=== PATIENT | female | born 1945 | race Two or more races ===

== ENCOUNTER 2020-12-15 15:43 | Inpatient (IN) | payer OTHER ==
[~2020-12-15] VITALS: Ht 167.6 cm; Wt 83.2 kg
[2020-12-15 16:28] LABS: Basophils # (auto) 0 10 ^3/uL (0-0.2); Eosinophils # (auto) 0 10 ^3/uL (0-0.8); Hematocrit 42.8 % (36.0-46.0); Hemoglobin 14.9 g/dL (12.2-16.2); Lymphocytes # (auto) 0.8 10 ^3/uL (0.4-5.4); Lymphocytes % (auto) 13.8 % (10.0-50.0); Mean Corpuscular Hemoglobin 33.3 pg (28.0-32.0); Mean Corpuscular Hgb Conc. 34.9 g/dL (32.0-36.0); Mean Corpuscular Volume 95.4 fL (80.0-100.0); Monocytes # (auto) 0.3 10 ^3/uL (0-1.3); Monocytes % (auto) 5.7 % (0.0-12.0); Neutrophils # (auto) 4.8 10 ^3/uL (1.6-8.6); Neutrophils % (auto) 80.5 % (37.0-80.0); Red Blood Cells 4.49 10^6/uL (4.0-5.20); Red Cell Distribution Width 13.5 % (11.8-14.3)
[2020-12-15 16:48] LABS: Alanine Aminotransferase 25 U/L (13-56); Albumin 2.6 g/dL (3.4-5.0); Anion Gap 8 (5-15); Aspartate Aminotransferase 37 U/L (15-37); BUN/Creatinine Ratio 29.2; Blood Urea Nitrogen 21 mg/dL (7-18); Calcium 8.1 mg/dL (8.5-10.1); Carbon Dioxide 24 mmol/L (21-32); Chloride 102 mmol/L (98-107); GFR African American 101 mL/min; GFR Non-African American 84 mL/min; Glucose 93 mg/dL (74-106); Potassium 4.1 mmol/L (3.5-5.1); Sodium 134 mmol/L (136-145)
[2020-12-15 16:52] LABS: Alkaline Phosphatase 52 U/L (45-117); Bilirubin, Total 0.4 mg/dL (0.2-1.0); Total Protein 6.5 g/dL (6.4-8.2)
[2020-12-15 17:50] LABS: Urine Bacteria NONE SEEN /hpf (None Seen); Urine Blood Negative /uL (Negative); Urine Hyaline Cast FEW /lpf (0 - 2); Urine Mucus FEW (None Seen); Urine Specific Gravity 1.024 (1.001-1.035); Urine WBC 6 /hpf (0 - 5)
[2020-12-15] MEDS ORDERED: AZITHROMYCIN 500MG/ 250ML 250 ML IV ONE (20:00)
[2020-12-15] MEDS ORDERED: cefTRIAXone 1GM/50ML D5W 50 ML IV ONE (20:00)
[2020-12-15] MEDS ORDERED: HYDROcodone-ACET 5/325MG TAB PO ONE (21:00)
[2020-12-16] MEDS ORDERED: DOCUSATE SOD 100 MG CAP PO PRN
[2020-12-16] MEDS ORDERED: NITROGLYCERIN 0.4 MG SL TAB SL PRN
[2020-12-16] MEDS ORDERED: ACETAMINOPHEN 325 MG TAB PO PRN
[2020-12-16] MEDS ORDERED: ONDANSETRON HCL 4 MG/2 ML VIAL IV PRN
[2020-12-16 08:06] LABS: Basophils # (auto) 0 10 ^3/uL (0-0.2); Basophils % (auto) 0.4 % (0.0-2.0); Eosinophils # (auto) 0 10 ^3/uL (0-0.8); Eosinophils % (auto) 0.1 % (0.0-7.0); Hematocrit 42.6 % (36.0-46.0); Hemoglobin 14.7 g/dL (12.2-16.2); Lymphocytes # (auto) 0.7 10 ^3/uL (0.4-5.4); Lymphocytes % (auto) 14.8 % (10.0-50.0); Mean Corpuscular Hemoglobin 33.1 pg (28.0-32.0); Mean Corpuscular Hgb Conc. 34.6 g/dL (32.0-36.0); Mean Corpuscular Volume 95.7 fL (80.0-100.0); Monocytes # (auto) 0.2 10 ^3/uL (0-1.3); Monocytes % (auto) 5.3 % (0.0-12.0); Neutrophils # (auto) 3.7 10 ^3/uL (1.6-8.6); Neutrophils % (auto) 79.4 % (37.0-80.0); Red Blood Cells 4.46 10^6/uL (4.0-5.20); Red Cell Distribution Width 13.8 % (11.8-14.3); White Blood Cell 4.7 10^3/uL (4.4-10.8)
[2020-12-16 08:22] LABS: Albumin 2.3 g/dL (3.4-5.0); Calcium 8.2 mg/dL (8.5-10.1); Potassium 3.8 mmol/L (3.5-5.1)
[2020-12-16 08:26] LABS: BUN/Creatinine Ratio 24.4; Bilirubin, Total 0.5 mg/dL (0.2-1.0); Total Protein 6.4 g/dL (6.4-8.2)
[2020-12-16] MEDS ORDERED: ENOXAPARIN SOD 40 MG/0.4 ML SYRINGE SC SCH (10:00)
[2020-12-16] MEDS ORDERED: FAMOTIDINE (10MG/ML) 2ML VL IV SCH (10:00)
[2020-12-16] MEDS: ASCORBIC ACID 500 MG TAB PO SCH ×2 (10:37→23:00)
[2020-12-16] MEDS: MULTIPLE VITAMIN TAB PO SCH (10:37)
[2020-12-16] MEDS: AZITHROMYCIN 500MG/ 250ML 250 ML IV SCH ×2 (10:37→15:42)
[2020-12-16] MEDS: ZINC SULFATE 220mg CAP or TAB PO SCH (10:37)
[2020-12-16] MEDS ORDERED: DexAMETHasone 4 MG TAB PO ONE (11:30)
[2020-12-16] MEDS ORDERED: CHOLECALCIFEROL (VITD3) 2,000 UNIT CAP/TAB PO ONE (11:30)
[2020-12-16] MEDS: SODIUM CHLORIDE 0.9% 1,000 ML IV SCH ×2 (12:00→15:43)
[2020-12-16] MEDS: MORPHINE SULFATE INJECTION 2 MG/ML SYRG IV PRN (15:43)
[2020-12-16] MEDS: HYDROcodone-ACET 5/325MG TAB PO PRN (23:15)
[2020-12-17] MEDS ORDERED: ENOXAPARIN SOD 40 MG/0.4 ML SYRINGE SC SCH (02:45)
[2020-12-17] MEDS ORDERED: ALBUMIN 25% 50 ML IV ONE (03:00)
[2020-12-17] MEDS: FAMOTIDINE (10MG/ML) 2ML VL IV SCH ×3 (03:21→21:08)
[2020-12-17 05:11] LABS: Basophils # (auto) 0 10 ^3/uL (0-0.2); Basophils % (auto) 0.1 % (0.0-2.0); Eosinophils # (auto) 0 10 ^3/uL (0-0.8); Hematocrit 43.3 % (36.0-46.0); Hemoglobin 15.2 g/dL (12.2-16.2); Lymphocytes # (auto) 0.4 10 ^3/uL (0.4-5.4); Lymphocytes % (auto) 12.5 % (10.0-50.0); Mean Corpuscular Hemoglobin 33.4 pg (28.0-32.0); Mean Corpuscular Hgb Conc. 35.2 g/dL (32.0-36.0); Monocytes # (auto) 0.1 10 ^3/uL (0-1.3); Monocytes % (auto) 3.9 % (0.0-12.0); Neutrophils # (auto) 2.7 10 ^3/uL (1.6-8.6); Neutrophils % (auto) 83.5 % (37.0-80.0); Nucleated Red Blood Cells % 0.3 %; Red Blood Cells 4.56 10^6/uL (4.0-5.20); Red Cell Distribution Width 13.9 % (11.8-14.3); White Blood Cell 3.3 10^3/uL (4.4-10.8)
[2020-12-17 05:26] LABS: Potassium 3.7 mmol/L (3.5-5.1)
[2020-12-17 05:34] LABS: BUN/Creatinine Ratio 29.5; Calcium 8.4 mg/dL (8.5-10.1); Magnesium 2.4 mg/dL (1.6-2.6)
[2020-12-17] MEDS: HYDROcodone-ACET 5/325MG TAB PO PRN ×2 (06:38→20:44)
[2020-12-17] MEDS: ZINC SULFATE 220mg CAP or TAB PO SCH (10:57)
[2020-12-17] MEDS: cefTRIAXone 1GM/50ML D5W 50 ML IV SCH (10:57)
[2020-12-17] MEDS: DexAMETHasone 4 MG TAB PO SCH (10:58)
[2020-12-17] MEDS: ASCORBIC ACID 500 MG TAB PO SCH ×2 (10:58→21:08)
[2020-12-17] MEDS: CHOLECALCIFEROL (VITD3) 2,000 UNIT CAP/TAB PO SCH (10:58)
[2020-12-17] MEDS: MULTIPLE VITAMIN TAB PO SCH (10:59)
[2020-12-17] MEDS ORDERED: REMDESIVIR PER PHARMACY 0 ML IV SCH (12:30)
[2020-12-17] MEDS ORDERED: REMDESIVIR 200 MG in NS 210ml LOADING DOSE ADULT IV ONE (15:00)
[2020-12-17 17:00] VITALS: BP 126/58
[2020-12-17] MEDS ORDERED: DULO1CAP6 PO (18:57)
[2020-12-17] MEDS ORDERED: TIZA4CAP PO (18:57)
[2020-12-17] MEDS ORDERED: OXYB5SYP4 PO (18:57)
[2020-12-17] MEDS ORDERED: OXYC-650 PO (18:57)
[2020-12-17] MEDS ORDERED: CLOP75TA70 PO (18:57)
[2020-12-17] MEDS ORDERED: ASPI325T4 PO (18:57)
[2020-12-17] MEDS: SODIUM CHLORIDE 0.9% 1,000 ML IV SCH (21:08)
[2020-12-17] MEDS: ENOXAPARIN SOD 40 MG/0.4 ML SYRINGE SC SCH (21:09)
[2020-12-17 22:00] VITALS: BP 122/78
[2020-12-18] MEDS: HYDROcodone-ACET 5/325MG TAB PO PRN ×2 (03:46→08:50)
[2020-12-18 06:00] LABS: Basophils # (auto) 0 10 ^3/uL (0-0.2); Basophils % (auto) 0.1 % (0.0-2.0); Eosinophils # (auto) 0 10 ^3/uL (0-0.8); Hematocrit 44.9 % (36.0-46.0); Hemoglobin 15.5 g/dL (12.2-16.2); Lymphocytes # (auto) 0.6 10 ^3/uL (0.4-5.4); Lymphocytes % (auto) 11.2 % (10.0-50.0); Mean Corpuscular Hemoglobin 33.1 pg (28.0-32.0); Mean Corpuscular Hgb Conc. 34.6 g/dL (32.0-36.0); Mean Corpuscular Volume 95.8 fL (80.0-100.0); Monocytes # (auto) 0.4 10 ^3/uL (0-1.3); Monocytes % (auto) 7.1 % (0.0-12.0); Neutrophils # (auto) 4.4 10 ^3/uL (1.6-8.6); Neutrophils % (auto) 81.6 % (37.0-80.0); Nucleated Red Blood Cells % 0.2 %; Red Blood Cells 4.69 10^6/uL (4.0-5.20); Red Cell Distribution Width 13.9 % (11.8-14.3); White Blood Cell 5.3 10^3/uL (4.4-10.8)
[2020-12-18 06:27] LABS: Albumin 2.3 g/dL (3.4-5.0); BUN/Creatinine Ratio 35.4; Bilirubin, Total 0.3 mg/dL (0.2-1.0); Calcium 8.7 mg/dL (8.5-10.1); Magnesium 2.2 mg/dL (1.6-2.6); Total Protein 6.3 g/dL (6.4-8.2)
[2020-12-18 09:00] VITALS: BP 140/57
[2020-12-18] MEDS: cefTRIAXone 1GM/50ML D5W 50 ML IV SCH (09:00)
[2020-12-18] MEDS: SODIUM CHLORIDE 0.9% 1,000 ML IV SCH (09:00)
[2020-12-18] MEDS: FAMOTIDINE (10MG/ML) 2ML VL IV SCH ×2 (09:54→21:08)
[2020-12-18] MEDS: ZINC SULFATE 220mg CAP or TAB PO SCH (09:54)
[2020-12-18] MEDS: AZITHROMYCIN 500MG/ 250ML 250 ML IV SCH (09:54)
[2020-12-18] MEDS: DexAMETHasone 4 MG TAB PO SCH (09:55)
[2020-12-18] MEDS: ASCORBIC ACID 500 MG TAB PO SCH ×2 (09:55→21:09)
[2020-12-18] MEDS: ENOXAPARIN SOD 40 MG/0.4 ML SYRINGE SC SCH ×2 (09:55→21:09)
[2020-12-18] MEDS: MULTIPLE VITAMIN TAB PO SCH (09:55)
[2020-12-18] MEDS: CHOLECALCIFEROL (VITD3) 2,000 UNIT CAP/TAB PO SCH (09:55)
[2020-12-18] MEDS: OXYCODONE W/ ACETAMINOPHEN 5/325MG TABLET PO PRN ×3 (11:22→21:10)
[2020-12-18] MEDS: guaiFENesin-DM 100/10mg/5ml SYR PO PRN ×3 (11:23→21:23)
[2020-12-18 12:51] VITALS: BP 126/48
[2020-12-18] MEDS: REMDESIVIR 100mg 100 MG in SODIUM CHL 0.9% 230 ML IV SCH (15:00)
[2020-12-18 17:00] VITALS: BP 116/65
[2020-12-18 22:00] VITALS: BP 123/77
[2020-12-19 05:00] VITALS: BP 132/80
[2020-12-19] MEDS: OXYCODONE W/ ACETAMINOPHEN 5/325MG TABLET PO PRN ×4 (05:29→20:54)
[2020-12-19] MEDS: guaiFENesin-DM 100/10mg/5ml SYR PO PRN ×4 (05:30→20:53)
[2020-12-19] MEDS: SODIUM CHLORIDE 0.9% 1,000 ML IV SCH (05:30)
[2020-12-19 05:56] LABS: Basophils # (auto) 0 10 ^3/uL (0-0.2); Basophils % (auto) 0.3 % (0.0-2.0); Eosinophils # (auto) 0 10 ^3/uL (0-0.8); Hematocrit 42.4 % (36.0-46.0); Hemoglobin 14.4 g/dL (12.2-16.2); Lymphocytes # (auto) 0.4 10 ^3/uL (0.4-5.4); Lymphocytes % (auto) 10.5 % (10.0-50.0); Mean Corpuscular Hemoglobin 32.4 pg (28.0-32.0); Mean Corpuscular Hgb Conc. 33.9 g/dL (32.0-36.0); Mean Corpuscular Volume 95.6 fL (80.0-100.0); Monocytes # (auto) 0.3 10 ^3/uL (0-1.3); Monocytes % (auto) 7.3 % (0.0-12.0); Neutrophils # (auto) 3.2 10 ^3/uL (1.6-8.6); Neutrophils % (auto) 81.9 % (37.0-80.0); Nucleated Red Blood Cells % 0.1 %; Red Blood Cells 4.43 10^6/uL (4.0-5.20); White Blood Cell 3.8 10^3/uL (4.4-10.8)
[2020-12-19 06:16] LABS: Potassium 3.8 mmol/L (3.5-5.1)
[2020-12-19 06:25] LABS: Albumin 2.2 g/dL (3.4-5.0); BUN/Creatinine Ratio 42.4; Bilirubin, Total 0.3 mg/dL (0.2-1.0); Calcium 8.3 mg/dL (8.5-10.1); Magnesium 2.2 mg/dL (1.6-2.6); Total Protein 5.7 g/dL (6.4-8.2)
[2020-12-19 08:42] VITALS: BP 134/92
[2020-12-19] MEDS: MULTIPLE VITAMIN TAB PO SCH (09:18)
[2020-12-19] MEDS: cefTRIAXone 1GM/50ML D5W 50 ML IV SCH (09:18)
[2020-12-19] MEDS: FAMOTIDINE (10MG/ML) 2ML VL IV SCH ×2 (09:18→20:52)
[2020-12-19] MEDS: DexAMETHasone 4 MG TAB PO SCH (09:19)
[2020-12-19] MEDS: ZINC SULFATE 220mg CAP or TAB PO SCH (09:20)
[2020-12-19] MEDS: ASCORBIC ACID 500 MG TAB PO SCH ×2 (09:20→20:52)
[2020-12-19] MEDS: ENOXAPARIN SOD 40 MG/0.4 ML SYRINGE SC SCH ×2 (09:20→20:53)
[2020-12-19] MEDS: CHOLECALCIFEROL (VITD3) 2,000 UNIT CAP/TAB PO SCH (09:20)
[2020-12-19] MEDS: AZITHROMYCIN 500MG/ 250ML 250 ML IV SCH (10:20)
[2020-12-19 12:48] VITALS: BP 109/37
[2020-12-19] MEDS: REMDESIVIR 100mg 100 MG in SODIUM CHL 0.9% 230 ML IV SCH (15:57)
[2020-12-19 17:00] VITALS: BP 148/65
[2020-12-19 22:00] VITALS: BP 120/64
[2020-12-20] MEDS: SODIUM CHLORIDE 0.9% 1,000 ML IV SCH ×2 (01:20→15:30)
[2020-12-20 05:00] VITALS: BP 137/82
[2020-12-20] MEDS: guaiFENesin-DM 100/10mg/5ml SYR PO PRN ×4 (05:40→22:49)
[2020-12-20] MEDS: OXYCODONE W/ ACETAMINOPHEN 5/325MG TABLET PO PRN ×5 (05:40→22:48)
[2020-12-20 05:45] LABS: Albumin 2.1 g/dL (3.4-5.0); Calcium 8.3 mg/dL (8.5-10.1); Potassium 4.1 mmol/L (3.5-5.1)
[2020-12-20 05:51] LABS: BUN/Creatinine Ratio 39.4; Bilirubin, Total 0.2 mg/dL (0.2-1.0); Total Protein 5.6 g/dL (6.4-8.2)
[2020-12-20 08:50] VITALS: BP 146/69
[2020-12-20] MEDS: cefTRIAXone 1GM/50ML D5W 50 ML IV SCH (09:40)
[2020-12-20] MEDS: ASCORBIC ACID 500 MG TAB PO SCH ×2 (09:40→21:55)
[2020-12-20] MEDS: CHOLECALCIFEROL (VITD3) 2,000 UNIT CAP/TAB PO SCH (09:40)
[2020-12-20] MEDS: FAMOTIDINE (10MG/ML) 2ML VL IV SCH ×2 (09:40→21:55)
[2020-12-20] MEDS: MULTIPLE VITAMIN TAB PO SCH (09:40)
[2020-12-20] MEDS: ENOXAPARIN SOD 40 MG/0.4 ML SYRINGE SC SCH ×2 (09:40→21:55)
[2020-12-20] MEDS: DexAMETHasone 4 MG TAB PO SCH (09:40)
[2020-12-20] MEDS: ZINC SULFATE 220mg CAP or TAB PO SCH (09:40)
[2020-12-20] MEDS: AZITHROMYCIN 500MG/ 250ML 250 ML IV SCH (10:30)
[2020-12-20] MEDS ORDERED: DESITIN (ZINC OXIDE 40%) OINT 28G TUBE TOP PRN (11:45)
[2020-12-20 12:30] VITALS: BP 113/71
[2020-12-20] MEDS: ZINC OXIDE 20 % OINT 30GM TOP PRN (12:30)
[2020-12-20] MEDS: REMDESIVIR 100mg 100 MG in SODIUM CHL 0.9% 230 ML IV SCH (15:45)
[2020-12-20 16:50] VITALS: BP 131/67
[2020-12-20 22:00] VITALS: BP 126/63
[2020-12-21 05:00] VITALS: BP 148/74
[2020-12-21] MEDS: guaiFENesin-DM 100/10mg/5ml SYR PO PRN ×5 (05:19→23:36)
[2020-12-21] MEDS: OXYCODONE W/ ACETAMINOPHEN 5/325MG TABLET PO PRN ×5 (05:19→23:36)
[2020-12-21 06:46] LABS: Potassium 4.8 mmol/L (3.5-5.1)
[2020-12-21 06:55] LABS: Albumin 2.2 g/dL (3.4-5.0); BUN/Creatinine Ratio 39.4; Bilirubin, Total 0.3 mg/dL (0.2-1.0); Calcium 8.5 mg/dL (8.5-10.1); Total Protein 5.8 g/dL (6.4-8.2)
[2020-12-21] MEDS: SODIUM CHLORIDE 0.9% 1,000 ML IV SCH (08:10)
[2020-12-21 09:00] VITALS: BP 132/75
[2020-12-21] MEDS: ZINC SULFATE 220mg CAP or TAB PO SCH (09:59)
[2020-12-21] MEDS: CHOLECALCIFEROL (VITD3) 2,000 UNIT CAP/TAB PO SCH (09:59)
[2020-12-21] MEDS: ASCORBIC ACID 500 MG TAB PO SCH ×2 (09:59→21:38)
[2020-12-21] MEDS: AZITHROMYCIN 500MG/ 250ML 250 ML IV SCH (09:59)
[2020-12-21] MEDS: FAMOTIDINE (10MG/ML) 2ML VL IV SCH ×2 (09:59→21:37)
[2020-12-21] MEDS: DexAMETHasone 4 MG TAB PO SCH (09:59)
[2020-12-21] MEDS: MULTIPLE VITAMIN TAB PO SCH (09:59)
[2020-12-21] MEDS: ENOXAPARIN SOD 40 MG/0.4 ML SYRINGE SC SCH ×2 (10:00→21:38)
[2020-12-21] MEDS: cefTRIAXone 1GM/50ML D5W 50 ML IV SCH (12:45)
[2020-12-21 13:00] VITALS: BP 133/72
[2020-12-21] MEDS: REMDESIVIR 100mg 100 MG in SODIUM CHL 0.9% 230 ML IV SCH (15:40)
[2020-12-21 16:55] VITALS: BP 132/62
[2020-12-21] MEDS: MORPHINE SULFATE INJECTION 2 MG/ML SYRG IV PRN (21:14)
[2020-12-21 22:00] VITALS: BP 121/65
[2020-12-22] MEDS: SODIUM CHLORIDE 0.9% 1,000 ML IV SCH ×2 (01:07→17:37)
[2020-12-22] MEDS: guaiFENesin-DM 100/10mg/5ml SYR PO PRN ×4 (04:56→21:47)
[2020-12-22] MEDS: OXYCODONE W/ ACETAMINOPHEN 5/325MG TABLET PO PRN ×4 (04:57→21:47)
[2020-12-22 05:00] VITALS: BP 115/75
[2020-12-22 09:00] VITALS: BP 115/59
[2020-12-22] MEDS: AZITHROMYCIN 500MG/ 250ML 250 ML IV SCH (09:57)
[2020-12-22] MEDS: FAMOTIDINE (10MG/ML) 2ML VL IV SCH ×2 (09:57→21:46)
[2020-12-22] MEDS: DexAMETHasone 4 MG TAB PO SCH (09:57)
[2020-12-22] MEDS: ZINC SULFATE 220mg CAP or TAB PO SCH (09:57)
[2020-12-22] MEDS: CHOLECALCIFEROL (VITD3) 2,000 UNIT CAP/TAB PO SCH (09:58)
[2020-12-22] MEDS: MULTIPLE VITAMIN TAB PO SCH (09:58)
[2020-12-22] MEDS: ASCORBIC ACID 500 MG TAB PO SCH ×2 (09:58→21:46)
[2020-12-22] MEDS: ENOXAPARIN SOD 40 MG/0.4 ML SYRINGE SC SCH ×2 (09:58→21:47)
[2020-12-22] MEDS: cefTRIAXone 1GM/50ML D5W 50 ML IV SCH (11:24)
[2020-12-22 13:00] VITALS: BP 99/69
[2020-12-22 17:00] VITALS: BP 122/62
[2020-12-22 22:00] VITALS: BP 115/64
[2020-12-23 05:00] VITALS: BP 127/72
[2020-12-23] MEDS: guaiFENesin-DM 100/10mg/5ml SYR PO PRN ×4 (05:52→22:12)
[2020-12-23] MEDS: OXYCODONE W/ ACETAMINOPHEN 5/325MG TABLET PO PRN ×4 (05:52→22:13)
[2020-12-23 06:01] LABS: Basophils # (auto) 0.1 10 ^3/uL (0-0.2); Basophils % (auto) 1.1 % (0.0-2.0); Eosinophils # (auto) 0 10 ^3/uL (0-0.8); Eosinophils % (auto) 0.2 % (0.0-7.0); Hematocrit 42.6 % (36.0-46.0); Hemoglobin 14.2 g/dL (12.2-16.2); Lymphocytes # (auto) 0.7 10 ^3/uL (0.4-5.4); Lymphocytes % (auto) 15.5 % (10.0-50.0); Mean Corpuscular Hgb Conc. 33.5 g/dL (32.0-36.0); Mean Corpuscular Volume 95.6 fL (80.0-100.0); Monocytes # (auto) 0.4 10 ^3/uL (0-1.3); Monocytes % (auto) 7.5 % (0.0-12.0); Neutrophils # (auto) 3.6 10 ^3/uL (1.6-8.6); Neutrophils % (auto) 75.7 % (37.0-80.0); Nucleated Red Blood Cells % 0.2 %; Red Blood Cells 4.45 10^6/uL (4.0-5.20); Red Cell Distribution Width 14.5 % (11.8-14.3); White Blood Cell 4.8 10^3/uL (4.4-10.8)
[2020-12-23 06:18] LABS: Calcium 8.6 mg/dL (8.5-10.1); Magnesium 2.5 mg/dL (1.6-2.6); Potassium 4.9 mmol/L (3.5-5.1)
[2020-12-23] MEDS: cefTRIAXone 1GM/50ML D5W 50 ML IV SCH (07:50)
[2020-12-23 09:00] VITALS: BP 123/58
[2020-12-23] MEDS: ENOXAPARIN SOD 40 MG/0.4 ML SYRINGE SC SCH ×2 (10:07→22:12)
[2020-12-23] MEDS: ASCORBIC ACID 500 MG TAB PO SCH ×2 (10:07→22:11)
[2020-12-23] MEDS: DexAMETHasone 4 MG TAB PO SCH (10:07)
[2020-12-23] MEDS: CHOLECALCIFEROL (VITD3) 2,000 UNIT CAP/TAB PO SCH (10:07)
[2020-12-23] MEDS: FAMOTIDINE (10MG/ML) 2ML VL IV SCH ×2 (10:07→22:11)
[2020-12-23] MEDS: AZITHROMYCIN 500MG/ 250ML 250 ML IV SCH (10:07)
[2020-12-23] MEDS: MULTIPLE VITAMIN TAB PO SCH (10:07)
[2020-12-23] MEDS: ZINC SULFATE 220mg CAP or TAB PO SCH (10:08)
[2020-12-23] MEDS: SODIUM CHLORIDE 0.9% 1,000 ML IV SCH (10:15)
[2020-12-23 13:00] VITALS: BP 112/61
[2020-12-23 17:00] VITALS: BP 112/79
[2020-12-23 22:00] VITALS: BP 121/64
[2020-12-24 05:18] VITALS: BP 120/62
[2020-12-24] MEDS: guaiFENesin-DM 100/10mg/5ml SYR PO PRN (07:20)
[2020-12-24] MEDS: OXYCODONE W/ ACETAMINOPHEN 5/325MG TABLET PO PRN (07:20)
[2020-12-24 09:00] VITALS: BP 114/69
[2020-12-24] MEDS: cefTRIAXone 1GM/50ML D5W 50 ML IV SCH (09:16)
[2020-12-24] MEDS: ZINC SULFATE 220mg CAP or TAB PO SCH (09:17)
[2020-12-24] MEDS: MULTIPLE VITAMIN TAB PO SCH (09:17)
[2020-12-24] MEDS: ASCORBIC ACID 500 MG TAB PO SCH (09:17)
[2020-12-24] MEDS: FAMOTIDINE (10MG/ML) 2ML VL IV SCH (09:17)
[2020-12-24] MEDS: CHOLECALCIFEROL (VITD3) 2,000 UNIT CAP/TAB PO SCH (09:17)
[2020-12-24] MEDS: ENOXAPARIN SOD 40 MG/0.4 ML SYRINGE SC SCH (09:17)
[2020-12-24] MEDS: DexAMETHasone 4 MG TAB PO SCH (09:17)
[2020-12-24] MEDS: AZITHROMYCIN 500MG/ 250ML 250 ML IV SCH (10:00)
[2020-12-24] MEDS: ZINC OXIDE 20 % OINT 30GM TOP PRN (10:50)
[2020-12-24 12:17] VITALS: BP 116/64
[2020-12-24 13:00] VITALS: BP 106/56
== END 2020-12-24 14:15 | disposition home health service (06) | DRG 177 ==
LOC: EDBD 15:43 → ER 15:43 → OVERFLOW 12-16 00:05 → EAST 12-17 16:46 → TELE-EAST 12-21 23:04
PROVIDERS: ADMIT Internal Medicine; ATTEND Internal Medicine Geriatric Medicine
PROC: XW033E5 Introduction of Remdesivir Anti-infective into Peripheral Vein, Percutaneous Approach, New Technology Group 5 (ICD-10-PCS; 2020-12-17)
PROC: 05H933Z Insertion of Infusion Device into Right Brachial Vein, Percutaneous Approach (ICD-10-PCS; 2020-12-19)
PROC: B54MZZA Ultrasonography of Right Upper Extremity Veins, Guidance (ICD-10-PCS; 2020-12-19)
PROC: 05HA33Z Insertion of Infusion Device into Left Brachial Vein, Percutaneous Approach (ICD-10-PCS; principal; 2020-12-20)
PROC: B54NZZA Ultrasonography of Left Upper Extremity Veins, Guidance (ICD-10-PCS; 2020-12-20)
DX: U07.1 COVID-19 (principal); J96.01 Acute respiratory failure with hypoxia; J12.82 Pneumonia due to coronavirus disease 2019; J98.11 Atelectasis; E86.0 Dehydration; M19.90 Unspecified osteoarthritis, unspecified site; R19.7 Diarrhea, unspecified; Z86.718 Personal history of other venous thrombosis and embolism
CPT/HCPCS: 36415; 71045; 71250; 80048; 80053; 81001; 83735; 84484; 85025; 85379; 87040; 87077; 87186; 87426; 93005; 93971; 96365; 96368; 96375; 97110; 97116; 97163; 97530; G0378; J0696; J3490